=== PATIENT | female | born 1990 | race Caucasian/White ===

== ENCOUNTER 2017-10-12 10:03 | Emergency (ER) | payer OTHER, SELFPAY ==
[2017-10-12 10:21] VITALS: BP 128/81; PULSE 72; RESP 15; TEMP 36.8; O2SAT 99; BMI 20.9
--- NOTE | 2017-10-12 10:38 | ED_ITS ---
HPI - Back Pain/Injury General Chief Complaint: Back Pain/Injury Stated Complaint: SI JOINT PAIN Time Seen by Provider: 10/12/17 10:11 History of Present Illness HPI Narrative: HPI 26-year-old female presents for evaluation of one year of intermittent left- sided lower paraspinal lumbar pain that is sharp, nonradiating, provoked by physical movement/twisting, and is more prominent morning. Patient reports that she began experiencing this discomfort during a , was referred to a physical therapist, and diagnosed with sacroiliatic pain. Patient presented for evaluation today due to ongoing pain. Patient has not followed up with a PCP. Patient is taken OTC analgesics with intermittent, transient relief of symptoms. Patient denies a history of recent trauma, fevers, chills, unexpected weight loss, decreased perineal sensation when toileting, difficulty urinating or incontinence, morning stiffness, IV drug use, recent invasive medical procedures, presyncope, abdominal pain, Marfan's disease, or dysuria. M/S/F/SocHx notable for: please see HPI; remainder reviewed with patient and in chart. ROS: Negative constitutional, eye, cardiovascular, pulmonary, GI, , MSK, skin , neurologic, psychiatric, endocrine unless noted in the HPI. Exam Gen: Pleasant, non-toxic appearing, resting comfortably. HEENT: NC, AT, PEERL, EOMI. Resp: CTAB Card: RRR GI: ND, non-tender to palpation, no palpable midline masses, no palpable midline pulsatility. : No CVA tenderness to percussion bilaterally. MSK: No visible deformities, strength and tone WNL. No lower thoracic or lumbar spinal TTP, step offs or deformities. Mild lower left paraspinal lumbar TTP. Skin: Normal color with no visible lesions. Neuro: AO x 3, no facial asymmetry, vision and hearing WNL. Straight leg raise test - negative right, negative left. BLE distal sensation intact, 5/5 dorsiflexion / plantarflexion bilaterally. Psych: Mood and affect appropriate. MDM Previous chart, nursing note, and vitals reviewed. A: 26-year-old female presents for evaluation of one year of intermittent left- sided lower paraspinal lumbar pain that is sharp, nonradiating, provoked by physical movement/twisting, and is more prominent morning. Patient reports that she began experiencing this discomfort during a , was referred to a physical therapist, and diagnosed with sacroiliatic pain. DDx: muscle strain, muscle spasm, sciatica, lumbar radiculopathy, cauda equina syndrome, spinal cord abscess, vertebral osteomyelitis, vertebral diskitis, fracture, seronegative spondyloarthropathy, abdominal aortic aneurysm. Evaluation: * Cauda equina - consider unlikely given normal perineal sensation, lack of incontinence or urinary retention. * Infection - abscess, vertebral osteomyelitis, and diskitis are unlikely as the patient is immunocompetent and is with an absence of infectious signs and risk factors on ROS, and a lack of point tenderness. * Fracture - doubt given the absence of spinal TTP and lack of prior trauma * Seronegative spondyloarthropathy - remains on the differential, increase probability given duration of symptoms and more prominent morning discomfort. Further evaluation deferred to to an outpatient setting. * AAA or Dissection - given the lack of a palpable pulsatile abdominal mass, abdominal pain, presyncope, an abdominal aortic aneurysm as well as dissection is considered unlikely and further investigation is not currently indicated. * Ectopic - doubt given IUD usage, and lack of change in symptoms of one year duration. * Spontaneous hematoma - given the patient's use of anticoagulation and/or antiplatelet agents, as well as today's presentation not repsenting a typical exacerbation of a long standing injury, a CT abdomen and pelvis with contrast was obtained, this was without evidence of hematoma, a spontaneous epidural hematoma was also considered, but given the lack of objective motor or sensory deficits, a MRI is not presently indicated, the need for prompt return to care should any neurological deficits occur was communicated verbally and in writing with the patient.[ * Consider MSK pain to be the most likely cause of patient's symptoms. Counseled patient regarding return to care precautions and need for prompt follow-up, given return to care instructions, and recommendation for primary care physician follow up. Discharged with instructions to use NSAIDs. Impression: Back Pain. (please reference below for remainder of encounter information) Related Data Allergies Allergy/AdvReac Type Severity Reaction Status Date / Time No Known Drug Allergies Allergy Verified 10/12/17 10:21 Exam Initial Vital Signs Initial Vital Signs: Vital Signs Temperature 98.2 F 10/12/17 10:21 Pulse Rate 72 10/12/17 10:21 Respiratory Rate 15 10/12/17 10:21 Blood Pressure 128/81 H 10/12/17 10:21 Pulse Oximetry 99 10/12/17 10:21 Course Vital Signs - 8 hr 10/12/17 10:21 Temperature 98.2 F Pulse Rate 72 Respiratory Rate 15 Blood Pressure 128/81 H Pulse Oximetry 99
[2017-10-12 11:15] VITALS: BP 130/77; PULSE 74; RESP 16; O2SAT 100
== END 2017-10-12 11:56 | disposition home or self-care (01) ==
PROVIDERS: Emergency Provider Emergency Medicine
DX: M54.9 Dorsalgia, unspecified (principal)
CPT/HCPCS: 99282

== ENCOUNTER → 2020-12-29 09:53 | Outpatient (CLI) | payer OTHER, SELFPAY ==
--- NOTE | 2020-12-29 | DI.MRI.S_ITS ---
PROCEDURE: MR LUMBAR SPINE WO CON INDICATIONS: Spinal stenosis, lumbar region with neurogenic claudication TECHNIQUE: Noncontrast sagittal T1 spin echo and T2 fast echo, sagittal STIR, axial T1 and T2 fast spin echo through the lumbar spine. In cases with scoliosis, additional coronal T2 fast spin echo may be performed. COMPARISON: [facility] Outside Film, CR, XR SACROILIAC JOINTS 3+ VIEWS, 11/12/2020, 9:53. FINDINGS: Image quality: Excellent. Alignment and Curvature: There is normal bony alignment. Bone Marrow: Marrow is of normal overall signal. No acute vertebral body compression fractures. Spinal Cord: Conus medullaris terminates at the T12-L1 level. Visualized cord demonstrates normal signal and size. Paraspinous Soft Tissues: No paravertebral masses. T12-L1: Normal appearance. L1-L2: Normal appearance. L2-L3: There is a faintly seen annular fissure posteriorly and on the right, as on series 4, image 7. L3-L4: The disc height and disk signal are well-preserved. Mild generalized disc bulge is seen. Mild facet joint hypertrophy is seen. No significant neural foraminal or central canal narrowing can be seen. L4-L5: The disc height and disk signal are well-preserved. Mild generalized disc bulge is seen. There is a mild central disc protrusion. Mild facet joint hypertrophy is seen. Mild bilateral neural foraminal narrowing is seen. Minimal central canal narrowing is seen. L5-S1: No significant abnormality is seen. IMPRESSION: Mild lower lumbar spine degenerative changes are seen. Dictated by: Richard Rodriguez M.D. on 12/29/2020 at 9:27 Approved by: Richard Rodriguez M.D. on 12/29/2020 at 9:33
== END ==
PROVIDERS: PCP Family Medicine; Referring Provider Physical Medicine & Rehabilitation Pain Medicine; Visit Provider Physical Medicine & Rehabilitation Pain Medicine
DX: M48.062 Spinal stenosis, lumbar region with neurogenic claudication (principal)
CPT/HCPCS: 72148